=== PATIENT | male | born 1950 | race African-American/Black ===

== ENCOUNTER 2022-11-28 08:16 | Emergency (ER) | payer MEDICARE, OTHER ==
[2022-11-28] MEDS ORDERED: Cephalexin 250 MG CAP ONE (09:14)
[2022-11-28] MEDS ORDERED: Erythromycin Base 0.5% Oint 1 GM TUBE ONE (09:14)
== END 2022-11-28 09:48 | disposition home or self-care (01) ==
LOC: CSHERS 08:16
DX: H10.33 Unspecified acute conjunctivitis, bilateral (principal); L03.213 Periorbital cellulitis; L30.9 Dermatitis, unspecified
CPT/HCPCS: 99282